=== PATIENT | female | born 1970 | race Caucasian/White ===

== ENCOUNTER → 2020-10-30 | Outpatient (CLI) | payer BC ==
[2020-11-03 15:10] LABS: HPV 16 Negative (Negative); HPV 18 Negative (Negative); HPV OTHER HR TYPES Negative (Negative)
== END | disposition home or self-care (01) ==
LOC: PLD 13:50
PROVIDERS: Family Medicine
DX: Z01.419 Encounter for gynecological examination (general) (routine) without abnormal findings (principal)
CPT/HCPCS: 87624; G0123

== ENCOUNTER 2023-08-25 10:04 | Day surgery (SDC) | payer BC ==
[~2023-08-25] VITALS: Ht 171 cm; Wt 129.2 kg
[~2023-08-25 10:04] MED LIST: ANASTROZOLE1 M7 PO; BUSP5 PO; IBUP200 PO; LATA.005SO BOTHEYES; METFORMIN HCL500 M1 PO; OZEMPIC0.25 MG/02 SC; ROSU5 PO; SERT100 PO; TIMO.5OPSO BOTHEYES; VENLAFAXINE HCL50 MG PO
[2023-08-25 11:06] VITALS: BP 143/88
--- NOTE | 2023-08-25 11:34 | NUR ---
Ambulatory in Day Surgery. Patient states colon prep results clear/yellow. History, Chart, Medications and Allergies reviewed before start of procedure. Patient confirms NPO status and agrees with scheduled surgery. Pre-Op teaching done. Pt verbalizes understanding. Patient States Post-Procedure ride home has been arranged.
--- NOTE | 2023-08-25 12:01 | NUR ---
08/25/23 1201 Joshua Albright MONITOR INTACT WITH CONTINUOUS PULSE OXIMETRY, CONTINUOUS END TITAL CO2, AND INTERMITTENT BLOOD PRESSURE.AND EKG MAC PER DR. PATEL
[2023-08-25 12:58] VITALS: BP 143/87
--- NOTE | 2023-08-25 13:03 | NUR ---
VITALS SIGNS LOST ON COMPUTER. PATIENT STABLE FOR DISCHARGE. NO SOB OR PAIN. TOLERATED PO INTAKE.
--- NOTE | 2023-08-25 13:07 | NUR ---
Patient up to Ambulate independently. Gait steady. Discharge instructions reviewed with patient. Patient verbalizes understanding. Copy given to patient to take home. Patient States Post-Procedure ride home has been arranged with Mother. Discharged via wheelchair to private car for ride home.
== END 2023-08-25 13:07 | disposition home or self-care (01) ==
LOC: ORSCMMR 10:04 → ORD 11:30 → ORSCMMR 13:07
PROVIDERS: Surgery
PROC: 0DJD8ZZ Inspection of Lower Intestinal Tract, Via Natural or Artificial Opening Endoscopic (ICD-10-PCS; principal; 2023-08-25 11:30)
DX: Z12.11 Encounter for screening for malignant neoplasm of colon (principal); Z85.3 Personal history of malignant neoplasm of breast; E11.9 Type 2 diabetes mellitus without complications; G47.33 Obstructive sleep apnea (adult) (pediatric); Z79.899 Other long term (current) drug therapy; Z79.84 Long term (current) use of oral hypoglycemic drugs; Z87.891 Personal history of nicotine dependence
CPT/HCPCS: 82947; J2250; J2704; J7120

== ENCOUNTER → 2023-10-27 | Outpatient (CLI) | payer BC ==
[2023-10-27 08:51] LABS: Bun/Creatinine Ratio 21.1 (12.0-20.0); Creatinine, Blood 0.71 mg/dL (0.40-1.00); Potassium, Blood 4.1 mmol/L (3.5-5.5)
== END | disposition home or self-care (01) ==
LOC: LAB SHORT 06:08 → LAB 06:08
PROVIDERS: Family Medicine
DX: E11.9 Type 2 diabetes mellitus without complications (principal)
CPT/HCPCS: 36415; 80048; 83036

== ENCOUNTER → 2024-10-09 | Outpatient (CLI) | payer BC | END | disposition home or self-care (01) | LOC: LAB SHORT 09:47 | DX: R30.0 Dysuria (principal) | CPT/HCPCS: 87077; 87086; 87186 ==

== ENCOUNTER → 2025-05-20 | Outpatient (CLI) | payer BC ==
[2025-05-20 19:16] LABS: Creatinine, Urine Random 219.0 mg/dL (27.00-270.00)
[2025-05-20 19:18] LABS: Microalb/Creat Ratio UR, Rand 9.406 mg/g (0.000-30.000); Microalbumin, Random Urine 20.6 mg/L (0.000-20.000)
== END ==
LOC: LAB SHORT 16:34 → LAB 16:34
PROVIDERS: Family Medicine
DX: E11.9 Type 2 diabetes mellitus without complications (principal)
CPT/HCPCS: 82043; 82570

== ENCOUNTER 2025-06-02 17:50 | Emergency (ER) | payer BC ==
[~2025-06-02] VITALS: Ht 172.7 cm; Wt 112.9 kg
[2025-06-02 18:31] LABS: BASOPHILS ABSOLUTE AUTO 0.01 K/mm3 (0.00-0.23); BASOPHILS PERCENT AUTO 0 % (0-2); EOSINOPHILS ABSOLUTE AUTO 0.01 K/mm3 (0.00-0.68); EOSINOPHILS PERCENT AUTO 0 % (0-6); Hematocrit 44.5 % (33.0-51.0); Hemoglobin 15.0 g/dL (11.5-16.0); IMMATURE GRAN ABSOLUTE AUTO 0.02 K/mm3 (0.00-0.10); IMMATURE GRAN PERCENT AUTO 0 % (0-1); LYMPHOCYTES ABSOLUTE AUTO 1.43 K/mm3 (0.84-5.20); LYMPHOCYTES PERCENT AUTO 13 % (21-46); MONOCYTES ABSOLUTE AUTO 0.91 K/mm3 (0.16-1.47); MONOCYTES PERCENT AUTO 8 % (4-13); Mean Corpuscular HGB Conc 33.7 g/dL (31.5-36.5); Mean Corpuscular Volume 84 fL (80-100); NEUTROPHILS ABSOLUTE AUTO 8.52 K/mm3 (1.96-9.15); NEUTROPHILS PERCENT AUTO 78 % (41-73); NRBC ABSOLUTE 0.00 K/mm3 (0.00-0.02); NRBC Auto 0.0 /100 WBC (0.0-0.2); Platelet Count 259 K/mm3 (150-400); RDW Coefficient Variation 14.1 % (11.7-14.2); RDW Standard Deviation 43.0 fL (35.1-46.3)
[2025-06-02 18:50] LABS: Prothrombin Time Results 10.5 Sec (9.7-11.5)
[2025-06-02] MEDS ORDERED: Ketorolac Tromethamine 30mg Vial IV ONE (19:00)
[2025-06-02 19:02] LABS: Alanine Aminotransfer (ALT/SGP 49.0 U/L (12-78); Albumin, Blood 4.3 g/dL (3.4-5.0); Albumin/Globulin Ratio 1.2 (0.8-1.8); Anion Gap 11.0 mmol/L (3-11); Aspartate Aminotrans (AST/SGOT 25.0 U/L (12-37); Bilirubin, Total 0.6 mg/dL (0.1-1.0); Blood Urea Nitrogen 11.0 mg/dL (8-24); CO2, Blood 24.0 mmol/L (21-32); Calcium, Blood 10.1 mg/dL (8.5-10.1); Chloride, Blood 106.0 mmol/L (98-108); Creatinine, Blood 0.82 mg/dL (0.40-1.00); Globulin, Blood 3.7 g/dL (2.2-4.0); Glucose, Blood 123.0 mg/dL (70-99); Potassium, Blood 3.7 mmol/L (3.5-5.5); Sodium, Blood 137.0 mmol/L (136-145); Total Protein, Blood 8.0 g/dL (6.4-8.2)
[2025-06-02] MEDS ORDERED: NS 500 ML IV SCH (20:05)
[2025-06-02] MEDS ORDERED: MetroNIDAZOLE 500MG/NS 100 ml 100 ML IV ONE (20:05)
[2025-06-02] MEDS ORDERED: METR500 PO (21:43)
[2025-06-02] MEDS ORDERED: CIPR500 PO (21:43)
[2025-06-02 21:52] VITALS: BP 144/76
== END 2025-06-02 21:54 | disposition home or self-care (01) ==
LOC: ER 17:50
PROVIDERS: Student in an Organized Health Care Education/Training Program
DX: K51.311 Ulcerative (chronic) rectosigmoiditis with rectal bleeding (principal); E86.0 Dehydration; E11.9 Type 2 diabetes mellitus without complications; E78.5 Hyperlipidemia, unspecified; Z88.0 Allergy status to penicillin; Z88.3 Allergy status to other anti-infective agents; Z91.048 Other nonmedicinal substance allergy status; Z79.84 Long term (current) use of oral hypoglycemic drugs; Z79.85 Long-term (current) use of injectable non-insulin antidiabetic drugs; Z79.899 Other long term (current) drug therapy
CPT/HCPCS: 74177; 80053; 83690; 85025; 85610; 86850; 86900; 86901; 96374-59; 96375; 99285-25; A9270; J1885; J7030; Q9967